=== PATIENT | female | born 1965 | race Caucasian/White ===

== ENCOUNTER 2017-06-06 13:27 | Emergency (ER) | payer BC ==
[2017-06-06 13:57] LABS: #Basophils 0.1 thou/uL (0.0-0.2); #Eosinphils 0.3 thou/uL (0.0-0.7); #Lymphocytes 1.7 thou/uL (1.20-3.40); #Monocytes 0.8 thou/uL (0.11-0.59); %Basophils 0.8 % (0.0-1.0); %Eosinophils 3.5 % (0.0-10.0); %Monocytes 8.6 % (0.0-10.0); Hematocrit 43.7 % (36.0-47.0); Red Blood Cell (RBC) Count 4.49 mill/uL (4.20-5.40); White Blood Cell (WBC) Count 8.8 thou/uL (4.8-10.8)
[2017-06-06 14:26] LABS: ALT (SGPT) 21 U/L (8-55); AST (SGOT) 18 U/L (5-34); Alkaline Phosphatase 159 U/L (40-150); Anion Gap 11 mmol/L (10-20); BUN (Urea Nitrogen) 11 mg/dL (7.0-18.7); Bilirubin, Total 0.3 mg/dL (0.2-1.2); Calc. Creatinine Clearance 0 mL/min (70-130); Calcium 9.1 mg/dL (7.8-10.44); Carbon Dioxide 28 mmol/L (22-29); Chloride 106 mmol/L (98-107); Estimated GFR-MDRD 84; Protein, Total 7.1 g/dL (6.0-8.3)
--- NOTE | 2017-06-06 14:54 | ULT ---
ULTRASOUND RIGHT LOWER EXTREMITY VENOUS DOPPLER: Date: 06/06/17 HISTORY: Calf tenderness x3 days with edema and redness. History of pulmonary embolism. COMPARISON: Venous Doppler from 2007. TECHNIQUE: Real-time Cleveland scale, color Doppler, and spectral analysis of the right lower extremity venous syste m was performed with a linear transducer. FINDINGS: The right common femoral, femoral, proximal portion of greater saphenous, deep femoral vein, as well as popliteal and posterior tibial veins were interrogated. There is mild edema. No deep venous thrombosis. Normal compression, augmentation, and flow. IMPRESSION: No deep venous thrombosis POS: [facility]
== END 2017-06-06 16:42 | disposition home or self-care (01) ==
LOC: ERS 13:27
DX: M79.661 Pain in right lower leg (principal); Z79.899 Other long term (current) drug therapy
CPT/HCPCS: 36415; 80053; 85025; 85379

== ENCOUNTER 2017-11-26 15:57 | Outpatient (CLI) | payer BC | END 2017-11-26 15:58 | disposition home or self-care (01) | LOC: BICMAMMO 15:57 | PROVIDERS: ATTEND Obstetrics & Gynecology | DX: Z12.31 Encounter for screening mammogram for malignant neoplasm of breast (principal) | CPT/HCPCS: 77063; 77067 ==

== ENCOUNTER 2018-11-30 15:50 | Outpatient (CLI) | payer BC ==
--- NOTE | 2018-12-16 14:30 | MMO ---
Bilateral MAMMO Bilat Screen DDI+ABY. CLINICAL HISTORY: Patient is 53 years old and is seen for screening. The patient has no family history of breast cancer. The patient has no personal history of cancer. VIEWS: The views performed were: bilateral craniocaudal with tomosynthesis and bilateral mediolateral oblique with tomosynthesis. FILMS COMPARED: The present examination has been compared to prior imaging studies performed at [facility] on 11/15/2001, 05/18/2002, 07/11/2003, 01/10/2004, 10/18/2004, 11/18/2006, 12/03/2007, 12/04/2008, 12/05/2009, 12/06/2010, 12/08/2011, 12/09/2012, 12/13/2013, 12/14/2014, 11/19/2015, 11/24/2016 and 11/26/2017. MAMMOGRAM FINDINGS: The breasts are heterogeneously dense, which could obscure a lesion on mammography. There are no suspicious masses, suspicious calcifications, or new areas of architectural distortion. IMPRESSION: THERE IS NO MAMMOGRAPHIC EVIDENCE OF MALIGNANCY. A ROUTINE FOLLOW-UP MAMMOGRAM IN 1 YEAR IS RECOMMENDED. THE RESULTS OF THIS EXAM WERE SENT TO THE PATIENT. ACR BI-RADS Category 1 - Negative MAMMOGRAPHY NOTE: 1. A negative mammogram report should not delay a biopsy if a dominant of clinically suspicious mass is present. 2. Approximately 10% to 15% of breast cancers are not detected by mammography. 3. Adenosis and dense breasts may obscure an underlying neoplasm.
== END 2018-11-30 15:51 | disposition home or self-care (01) ==
LOC: BICMAMMO 15:50
PROVIDERS: ATTEND Obstetrics & Gynecology
DX: Z12.31 Encounter for screening mammogram for malignant neoplasm of breast (principal)
CPT/HCPCS: 77063; 77067

== ENCOUNTER 2019-12-29 12:46 | Outpatient (CLI) | payer BC ==
--- NOTE | 2019-12-29 14:05 | MMO ---
Bilateral MAMMO Bilat Screen DDI+ABY. CLINICAL HISTORY: Patient is 54 years old and is seen for screening. The patient has no family history of breast cancer. The patient has no personal history of cancer. VIEWS: The views performed were: bilateral craniocaudal with tomosynthesis and bilateral mediolateral oblique with tomosynthesis. FILMS COMPARED: The present examination has been compared to prior imaging studies performed at [facility] on 11/24/2016, 11/26/2017 and 11/30/2018. This study has been interpreted with the assistance of computer-aided detection. MAMMOGRAM FINDINGS: There are scattered fibroglandular densities. There is a round mass measuring 5 millimeters with circumscribed margins seen in the left breast at 9 o'clock. Increased in size. In the right breast, there are no suspicious masses, calcifications or areas of architectural distortion. IMPRESSION: MASS IN THE LEFT BREAST REQUIRES ADDITIONAL EVALUATION. AN ULTRASOUND EXAM IS RECOMMENDED. ADDITIONAL IMAGING. THE RESULTS OF THIS EXAM WERE SENT TO THE PATIENT. ACR BI-RADS Category 0 - Incomplete: Need additional imaging evaluation. [facility] will notify the patient of the need for additional imaging services. MAMMOGRAPHY NOTE: 1. A negative mammogram report should not delay a biopsy if a dominant of clinically suspicious mass is present. 2. Approximately 10% to 15% of breast cancers are not detected by mammography. 3. Adenosis and dense breasts may obscure an underlying neoplasm. Reported by: MARI JON MD Electonically Signed: [id number]
== END 2019-12-29 12:47 | disposition home or self-care (01) ==
LOC: BICMAMMO 12:46
PROVIDERS: ATTEND Obstetrics & Gynecology
DX: Z12.31 Encounter for screening mammogram for malignant neoplasm of breast (principal); N63.24 Unspecified lump in the left breast, lower inner quadrant
CPT/HCPCS: 77063; 77067

== ENCOUNTER 2019-12-30 12:48 | Outpatient (CLI) | payer BC ==
--- NOTE | 2019-12-30 15:02 | ULT ---
LEFT BREAST ULTRASOUND: Date: 12/30/2019 HISTORY: Evaluate mammographic abnormal finding in the left breast at 9 o'clock on prior mammogram. FINDINGS: The left breast is evaluated in the 9 o'clock position, approximately 3.0 cm from the nipple, demonst rating a 0.4 x 0.5 x 0.5 cm diameter cyst accounting for the mammographic finding. IMPRESSION: BI-RADS Category 2 - Benign findings. Continue annual follow-up screening mammograms. Left breast cyst at 9 o'clock, 3.0 cm from the nipple, accounting for the mammographic finding.
== END 2019-12-30 12:49 | disposition home or self-care (01) ==
LOC: BICULT 12:48
PROVIDERS: ATTEND Obstetrics & Gynecology
DX: N63.20 Unspecified lump in the left breast, unspecified quadrant (principal); N60.02 Solitary cyst of left breast

== ENCOUNTER 2020-10-13 18:40 | Inpatient (IN) | payer BC ==
[2020-10-13] MEDS ORDERED: Ondansetron PF 4 MG/2 ML Vial IVP PRN (21:32)
[2020-10-13] MEDS ORDERED: Senokot S 8.6-50 MG TAB PO PRN (21:32)
--- NOTE | 2020-10-13 21:32 | PDOC.FPRHP ---
- History of Present Illness Chief Complaint: jaundice History of Present Illness: Patient is a 54 yo F with PMH of hypothyroidism, GERD, brain bleed, prior PE who presents as a direct admit for cc of jaundice. She states last Thursday morning she noticed yellowing of her eyes. She also noticed she is fatigued, has bloa ting and indigestion, nausea, chills. Her urine also is bright yellow and her stool has turned to a kishor color. She endorses abdominal pain especially in the RUQ that is worse with eating and states it feels like a "jabbing pain". This RUQ pain and indigestion/bloating has been present "for quite some time but did not think much of it". Denies fever, weight loss, [place], CP, SOB, edema. She denies recent travel, history of IV drug use, recent illness, OTC/supplement use. No family history. No prior history of GI issues or gallbladder problems. Only has seen a GI for her colonoscopy which was normal 2 years ago. ED Course: at outside facility patient had lab work drawn which showed Tbili 10.5 direct bili 9 AST 132 ALT [address] abd pelvis which showed hypochoic lesion in right hepatic lobe measuring about 2.5cm, cholelithiasis without cholecystitis and CBD 5mm - Allergies/Adverse Reactions Allergies Allergy/AdvReac Type Severity Reaction Status Date / Time No Known Allergies Allergy Verified 11/26/19 06:19 - Home Medications Medication Instructions Recorded Confirmed Type Alendronate Sodium 70 mg PO ASDIR 10/13/20 10/13/20 History Levothyroxine Sodium 100 mcg PO DAILY 10/13/20 10/13/20 History [Levothyroxine] Meloxicam [Mobic] 15 mg PO PRN PRN 10/13/20 10/13/20 History tiZANidine HCl [Zanaflex] 4 mg PO Q8HR 10/13/20 10/13/20 History - History PMHx: hypothyroidism, GERD, brain bleed, prior PE (was told the brain bleed and PE were 2/2 to her OCP use after an extensive workup) PSHx: c section x3, hysterectomy with unilateral salpingoopheretomy FHx: denies Social: denies drug use, social alcohol with 1 glass of wine a month and social tobacco use in her 20s for 2 months - Vital signs BP: 127/71 HR: 71 RR: 18 Tmax: 98.4 Pox: 96% on RA Wt: 102kg - Physical Exam Constitutional: NAD, awake, alert and oriented HEENT: normocephalic and atraumatic, PERRLA, EOMI, other (scleral icterus) Neck: supple, FROM Heart: RRR, normal S1/S2, pulses present, no edema Lungs: CTAB, no respiratory distress, no wheezing Abdomen: soft, non-tender, bowel sounds present -Abdomen: negative wiggins's sign Musculoskeletal: normal structure, normal tone Neurological: no focal deficit -Neurological: no asterixis -Skin: jaundiced Heme/Lymphatic: no unusual bruising or bleeding, no purpura, no petechia Psychiatric: normal mood and affect, good judgment and insight, intact recent and remote memory FMR H&P: Results - Labs Result Diagrams: 10/14/20 06:05 10/14/20 06:05 FMR H&P: A/P - Plan Direct Hyperbilirubinemia -concern at this time for mass/malignancy vs autoimmune vs obstruction -patient with painless jaundice and T bili of 10.5, direct bili 9 -elevated AST/ALT/Alk Phos -no fever or WBC -CT showed hypoechoic lesion in right hepatic lobe at 2.5 cm and cholelithiasis without cholecystitis and CBD at 5mm -will order HIDA scan, may potentially need further imaging like hepatic MRI vs MRCP -GI consult in AM -Hepatitis panel, auto immune workup, protime with INR and PTT, further lab workup pending -repeat CMP in AM -NPO pending workup -avoid meds metabolized by liver at this time Hypothyroidism -aware, continue home meds -TSH pending OA -aware, continue home Meloxicam GERD -aware, Tums PRN History of brain bleed -aware History of PE -aware -SCDs for DVT ppx at this time as patient is low risk and is potentially pending procedure in AM Dispo: admit to medical inpatient pending further GI workup DVT ppx: SCDs Diet: NPO pending workup Code: FULL PCP Bacak fluids: LR @140mL/hr Attending: Yoshi FMR H&P: Upper Level - Plan Date/Time: 10/13/202131 Efren Archer DO, have evaluated this patient and agree with findings/plan as outlined by paralegal internship resident. Pertinent changes/additions are listed here. This is a 54 yo female with a pmh of hemorrhagic CVA, obesity, hx of PEs, hypothyroidism who presents to the hospital from an outside ER with a cc of abdominal pain and jaundice. She states the jaundice started about a week ago with associated kishor colored stool and bright yellow urine. She reports some abdominal pain with food but does have a history of GERD. She states she has had her uterus removed along with a single ovary due to excessive bleeding. She also reports her PEs and hemorrhagic stroke were 2/2 to her control at the time. She denies any SOB at this time. She denies any family history of GI issues and denies any history of hemochromatosis. She reports drinking a glass of wine socially 1-2/month and smoked cigarettes briefly in her twenties. She denies recent travel, fever, illness, or unusual foods. She denies IV drug abuse. Objective: Vitals: BP 152/83, HR 72, RR 18, SpO2 98% ra, Wt. 102 kg General: NAD HEENT: mmm, scleral icterus, AT/NC Cardio: RRR, no murmurs Lungs: CTAB Abdomen: BS+, no guarding or rebound, TTP of RUQ with negative wiggins's sign Skin: jaundice Extremities: Pulses 2+ globally, no edema A/P: Hyperbiliruminemia -Admit to medical -CT abdomen/RUQ us show gallstones without evidence of CBD dilation or cholecystitis, there is a 2.5cm liver mass and nonspecific dilation of the hepatic biliary system -Ordering direct bili, with reflex, viral hepatitis panel, coags, iron levels, ceruloplasmin, TSH for further workup. Consider HIDA scan in the AM to assess biliary collecting system -PRN nausea medication Liver mass -Pending labs detailed above for further evaluation Transaminitis -2/2 to obstruction of biliary tract, pending further workup Please see paralegal internship note for further details and management of chronic conditions Code: Full Prophylaxis: none Family: None at bedside Fluids: LR 140 ml/hr Diet: NPO at midnight Disposition: DC in 1-2 days PCP: Dr. Pina Addendum - Attending - Attending Attestation Date/Time: 10/14/20 1015 I personally evaluated the patient and discussed the management with Dr. Alvarenga and Ricky on 10/13. I agree with the History, Examination, Assessment and Plan documented above with any addition or exceptions noted below. Discuss with GI in the morning. Some symptoms c/w symptomatic cholelithiasis and likely obstruction.
[2020-10-13 21:47] VITALS: BMI 34.2
[2020-10-13 22:30] LABS: PTT 26.5 sec (22.9-36.1); Prothrombin Time 13.4 sec (12.0-14.7)
[2020-10-13 23:06] LABS: HBSAg Index 0.13 S/CO (0-0.99); Hep A IgM AB Non-Reactive (NonReactive); Hep A IgM S/CO 0.05 S/CO (0-0.79); Hep B Core Total Ab Non-Reactive (NonReactive); Hep B Core Total Index 0.07 S/CO (0-0.79); Hep B Surf Ag Non-Reactive S/CO (NonReactive); Hep C IgG Ab Non-Reactive (NonReactive); Hep C Index 0.06 S/CO (0-0.79); Thyroid Stimulating Hormone 3.6142 uIU/mL (0.35-4.94)
[2020-10-14] MEDS ORDERED: Meloxicam 15 MG TAB PO PRN (00:07)
[2020-10-14] MEDS ORDERED: Lactated Ringer's 1,000 ML IV SCH ×2 (00:15→00:34)
[2020-10-14] MEDS ORDERED: Calcium Carbonate 500 MG ChewTAB PO PRN (00:29)
[2020-10-14] MEDS: Levothyroxine Sodium 100 MCG TAB PO SCH (05:56)
[2020-10-14 06:17] LABS: #Eosinphils 0.2 thou/uL (0.0-0.7); #Lymphocytes 1.4 thou/uL (1.20-3.40); #Monocytes 0.7 thou/uL (0.11-0.59); #Neutrophils 5.3 thou/uL (1.40-6.50); %Basophils 0.4 % (0.0-1.0); %Eosinophils 3.1 % (0.0-10.0); %Lymphocytes 18.1 % (21.0-51.0); %Monocytes 9.7 % (0.0-10.0); %Neutrophils 68.7 % (42.0-75.0); Hemoglobin 14.4 g/dL (12.0-16.0); Mean Corpuscular HGB CONC 32.5 g/dL (32.0-36.0); Mean Corpuscular Hemoglobin 31.3 pg (27.0-31.0); Mean Corpuscular Volume 96.3 fL (78.0-98.0); Platelet Count 255 thou/uL (130-400); RBC Distribution Width 13.5 % (11.5-14.5); Red Blood Cell (RBC) Count 4.62 mill/uL (4.20-5.40); White Blood Cell (WBC) Count 7.6 thou/uL (4.8-10.8)
[2020-10-14 06:40] LABS: Iron 140 ug/dL (50-170); Transferrin, Serum 224 mg/dL (180-382)
[2020-10-14 06:41] LABS: ALT (SGPT) 192 U/L (8-55); AST (SGOT) 116 U/L (5-34); Albumin 3.5 g/dL (3.5-5.0); Alkaline Phosphatase 301 U/L (40-110); Anion Gap 15 mmol/L (10-20); BUN (Urea Nitrogen) 7 mg/dL (9.8-20.1); Bilirubin, Total 12.7 mg/dL (0.2-1.2); Calc. Creatinine Clearance 156 mL/min (70-130); Calcium 8.4 mg/dL (7.8-10.44); Carbon Dioxide 22 mmol/L (22-29); Chloride 106 mmol/L (98-107); Globulin 2.9 g/dL (2.4-3.5); Glucose 88 mg/dL (70-105); Potassium 3.7 mmol/L (3.5-5.1); Protein, Total 6.4 g/dL (6.0-8.3); Sodium 139 mmol/L (136-145)
--- NOTE | 2020-10-14 07:02 | PDOC.FM ---
- Subjective Subjective: pt resting comfortably in bed. denies abd pain, n/v, cp/sob. no episodes overnight - Objective Vital Signs & Weight: Vital Signs (12 hours) Temp Pulse Resp BP Pulse Ox 10/14/20 05:00 98.2 F 87 18 138/79 98 10/13/20 23:12 98.4 F 71 18 127/71 96 10/13/20 19:47 98.2 F 72 18 152/83 H 98 Weight Weight 102.058 kg I&O: 10/12/20 10/13/20 10/14/20 06:59 06:59 06:59 Intake Total 840 Balance 840 Result Diagrams: 10/14/20 06:05 10/14/20 06:05 Phys Exam - Physical Examination Constitutional: NAD HEENT: moist MMs Neck: full ROM Respiratory: clear to auscultation bilateral Cardiovascular: RRR Gastrointestinal: soft, non-tender, no distention, positive bowel sounds Musculoskeletal: no edema Neurological: moves all 4 limbs Psychiatric: normal affect Skin: no rash Dx/Plan - Plan Plan: Direct Hyperbilirubinemia - mass/malignancy vs autoimmune vs obstruction -will order HIDA scan, may potentially need further imaging like hepatic MRI vs MRCP -GI consult -Hepatitis panel neg, auto immune workup pending , coags wnl -monitor CMP -NPO pending workup -avoid meds metabolized by liver at this time Hypothyroidism -aware, continue home meds -TSH wnl OA -aware, continue home Meloxicam GERD -aware, Tums PRN History of brain bleed -aware History of PE -aware -SCDs for DVT ppx at this time as patient is low risk and is potentially pending procedure Dispo: continue further evaluation, consult GI DVT ppx: SCDs Diet: NPO pending GI input Code: FULL PCP Bacak fluids: LR @140mL/hr Addendum - Attending - Attending Attestation Date/Time: 10/14/20 1026 I personally evaluated the patient and discussed the management with Dr. Rosa. I agree with the History, Examination, Assessment and Plan documented above with any addition or exceptions noted below.
[2020-10-14] MEDS ORDERED: Enoxaparin Sodium 40 MG/0.4 ML SYRINGE SC SCH (09:00)
--- NOTE | 2020-10-14 14:03 | CON ---
DATE OF CONSULTATION: 10/14/2020 HISTORY OF PRESENT ILLNESS: The patient is a 54-year-old female, who noticed that darkening in her eyes were becoming more yellow beginning a week ago. She has some fatigue. She had some nausea and chills. She did not really have significant pain, but has noticed maybe some sharp discomfort in the right side. She said this began when she was told she had gallstones. She has had some indigestion. Her stools have been light colored or kishor-colored. She denies any recent medication use. She does not use any egub-mbj-oqyaglq medicines. No recent new prescription medicines. No travel. No family history of any liver disease. She had a normal colonoscopy 2 years ago. As an outpatient, she underwent an ultrasound and CT scan at [facility] and another ultrasound at [facility]. Those report . According to the family practice notes, there was a liver mass and gallstones. PAST MEDICAL HISTORY: Includes hypothyroidism, gastroesophageal reflux disease, intracranial hemorrhage, pulmonary embolism. PAST SURGICAL HISTORY: Significant for 3 C-sections, hysterectomy. FAMILY HISTORY: Negative for any GI or liver disease. SOCIAL HISTORY: She drinks very rarely. Does not smoke. REVIEW OF SYSTEMS: Noncontributory. PHYSICAL EXAMINATION: GENERAL: Shows a jaundiced, overweight female, in no acute distress. VITAL SIGNS: Temperature 98.1, pulse 72, respiratory rate 18, and blood pressure 133/82. HEENT: Scleral icterus. NECK: Supple. CHEST: Clear. CARDIOVASCULAR: Regular rate and rhythm. ABDOMEN: Soft, nontender. The liver edge is approximately 3 fingerbreadths below the right costal margin, seems to be smooth. RECTAL: Deferred. EXTREMITIES: Normal. NEUROLOGIC: Nonfocal. LABORATORY DATA: Laboratory shows essentially normal CBC. PT is 13.4 with an INR of 1.0. Chemistries significant for a BUN of 7. Total bilirubin 12.7, direct of 9.0, AST of 116, ALT of 192, alkaline phosphatase of 301. Hepatitis A, B and C serology are negative. with the radiologist. The ultrasound showed a common duct of 4.9 mm, gallstones without evidence of gallbladder thickening. A liver mass that is noncharacteristic. CT showed a liver mass in the hilum. There may be some slight increase in intrahepatic bile duct size on the left lobe, but this is very minimal, if present. ASSESSMENT: 1. Jaundice-exact etiology of the patient's jaundice is unclear. This does not look like it is a case of choledocholithiasis, possibly this hepatic mass is appearing with biliary drainage on the left side, but the ductal dilatation on the left lobe of the liver is very mild. No common bile duct dilatation is seen to indicate common duct stone. 2. Cholelithiasis. RECOMMENDATIONS: 1. MRCP tomorrow. 2. AMA, , smooth muscle antibody. 3. Ferritin. 4. Alpha-1 antitrypsin level. 5. Immunoglobulin levels. 6. These results will dictate further management. Job ID: [id number]
[2020-10-14] MEDS ORDERED: Morphine 2 MG/ML VIAL SLOW IVP SCH (15:00)
[2020-10-14] MEDS ORDERED: diphenhydrAMINE 50 MG/ML VIAL ONE (15:52)
[2020-10-14] MEDS ORDERED: diphenhydrAMINE 50 MG/ML VIAL IVP SCH (17:30)
--- NOTE | 2020-10-14 17:49 | NM ---
HEPATOBILIARY SCAN: HISTORY: Jaundice, hyperbilirubinemia, cholelithiasis. RADIOPHARMACEUTICAL: 4.5 mCi Technetium 99m mebrofenin injected intravenously on day 1. 2 mCi Technetium 99m mebrofenin injected intravenously on day 2 (22-hour delay). CCK-8: The patient was pretreated with 2 mcg of CCK-8 intravenously 30 minutes prior to the 1st radiotracer injection. FINDINGS: There is good tracer extraction by the liver. Minimal activity was assumed in the small loops and 2 mg IV morphine was administered with further imaging for 30 minutes. There is no filling of the gall bladder from the Morphine injection. There is tracer activity in the urinary bladder. Different intensities were used to see if there was any activity in the bowel loops. No definite bowel activity is seen. A 21-hour delayed exam was performed which demonstrated no definite activity in the small bowel loops . A second dose of radiotracer was given at 22 hours and imaging was performed for another one hour. N o tracer excretion is seen in the biliary tract or the small bowel loops. No filling of the gallblad edson is seen. IMPRESSION: Findings are highly suspicious for a high-grade biliary obstruction. Discussed over the telephone with Dr. Fredo Cleveland at 1700 hours on 10/14/2020 and 1130 hours on 10/15/2020 . CODE CR POS: [facility]
[2020-10-15] MEDS: Lactated Ringer's 1,000 ML IV SCH ×4 (00:25→23:51)
[2020-10-15] MEDS: Levothyroxine Sodium 100 MCG TAB PO SCH (05:55)
[2020-10-15 07:50] LABS: Iron 111 ug/dL (50-170); Iron Binding Capacity, Total 265 mcg/dL (265-497)
[2020-10-15 07:53] LABS: ALT (SGPT) 163 U/L (8-55); AST (SGOT) 101 U/L (5-34); Albumin 3.3 g/dL (3.5-5.0); Alkaline Phosphatase 264 U/L (40-110); Anion Gap 14 mmol/L (10-20); BUN (Urea Nitrogen) 10 mg/dL (9.8-20.1); Bilirubin, Total 13.2 mg/dL (0.2-1.2); Calc. Creatinine Clearance 164 mL/min (70-130); Calcium 8.3 mg/dL (7.8-10.44); Carbon Dioxide 21 mmol/L (22-29); Chloride 106 mmol/L (98-107); Globulin 2.7 g/dL (2.4-3.5); Glucose 75 mg/dL (70-105); Potassium 3.9 mmol/L (3.5-5.1); Sodium 137 mmol/L (136-145)
[2020-10-15 08:29] LABS: Immunoglob - M (Total IgM) Less than 50.00 mg/dL (33-293)
[2020-10-15] MEDS ORDERED: Magnevist 469MG/ML 20 ML VIAL ONE (10:30)
--- NOTE | 2020-10-15 10:33 | PDOC.FM ---
- Subjective Subjective: Patient feeling okay this morning, just nervous about the results of her imaging and lab studies. HIDA scan showed possible biliary obstruction. Dr. Cleveland planning for MRCP today. Patient denies any chest pain, SOB, abdominal pain, nausea, vomiting, diarrhea, edema. - Objective Vital Signs & Weight: Vital Signs (12 hours) Temp Pulse Resp BP Pulse Ox 10/15/20 07:28 97.6 F 75 18 133/77 97 10/15/20 03:40 98.3 F 73 16 154/77 H 96 10/14/20 23:37 98.0 F 72 16 137/76 95 Weight Weight 102.058 kg I&O: 10/14/20 10/15/20 10/16/20 06:59 06:59 06:59 Intake Total 840 2880 Balance 840 2880 Result Diagrams: 10/14/20 06:05 10/15/20 07:04 Phys Exam - Physical Examination Constitutional: NAD jaundice present, yellow sclera HEENT: moist MMs Neck: supple, full ROM Respiratory: no wheezing, clear to auscultation bilateral Cardiovascular: RRR, no significant murmur Gastrointestinal: soft, non-tender, no distention, positive bowel sounds Musculoskeletal: no edema, pulses present Neurological: normal sensation, moves all 4 limbs Psychiatric: normal affect, A&O x 3 Skin: no rash, normal turgor Deviation from normal: yellow coloring Dx/Plan (1) Direct hyperbilirubinemia Code(s): E80.6 - OTHER DISORDERS OF BILIRUBIN METABOLISM Status: Acute (2) Transaminitis Code(s): R74.01 - ELEVATION OF LEVELS OF LIVER TRANSAMINASE LEVELS Status: Acute (3) GERD (gastroesophageal reflux disease) Code(s): K21.9 - GASTRO-ESOPHAGEAL REFLUX DISEASE WITHOUT ESOPHAGITIS Status: Chronic Qualifiers: Esophagitis presence: without esophagitis Qualified Code(s): K21.9 - Gastro-esophageal reflux disease without esophagitis - Plan Plan: Direct Hyperbilirubinemia - mass/malignancy vs autoimmune vs obstruction - total bili 10.5 -> 13.2, direct bili 9, AST 132, ALT 209, Alk Phos 295 - Abd U/S and CT abd at outside ED facility, showed 2.5 cm hypoechoic lesion of right hepatic lobe, 4.9 mm common duct, cholelithiasis - HIDA scan: possible biliary obstruction - GI consult--Dr. Cleveland, appreciate recs -lab studies ordered and pending -plan for MRCP later today - Hepatitis panel neg, auto immune workup pending , coags wnl -so far AFP, CEA, Immunogloblins are wnl - monitor CMP - NPO pending workup - avoid meds metabolized by liver at this time Hypothyroidism - aware, continue home meds - TSH wnl OA - aware, continue home Meloxicam GERD - aware, Tums PRN History of brain bleed - aware History of PE - aware - SCDs for DVT ppx at this time as patient is low risk and is potentially pending procedure DVT ppx: SCDs Diet: NPO pending GI input Code: FULL PCP: Yovani fluids: LR @140mL/hr Dispo: Stable, admitted to inpatient on medical unit. GI consulted with plan for MRCP later today. Lab studies pending to further guide management. Addendum - Attending - Attending Attestation Date/Time: 10/15/20 6635 I personally evaluated the patient and discussed the management with Dr. Garza. I agree with the History, Examination, Assessment and Plan documented above with any addition or exceptions noted below.
--- NOTE | 2020-10-15 11:52 | NM ---
HEPATOBILIARY SCAN: HISTORY: Jaundice, hyperbilirubinemia, cholelithiasis. RADIOPHARMACEUTICAL: 4.5 mCi Technetium 99m mebrofenin injected intravenously on day 1. 2 mCi Technetium 99m mebrofenin injected intravenously on day 2 (22-hour delay). CCK-8: The patient was pretreated with 2 mcg of CCK-8 intravenously 30 minutes prior to the 1st radiotracer injection. FINDINGS: There is good tracer extraction by the liver. Minimal activity was assumed in the small loops and 2 mg IV morphine was administered with further imaging for 30 minutes. There is no filling of the gall bladder from the Morphine injection. There is tracer activity in the urinary bladder. Different intensities were used to see if there was any activity in the bowel loops. No definite bowel activity is seen. A 21-hour delayed exam was performed which demonstrated no definite activity in the small bowel loops . A second dose of radiotracer was given at 22 hours and imaging was performed for another one hour. N o tracer excretion is seen in the biliary tract of the small bowel loops. No filling of the gallblad edson is seen. IMPRESSION: Findings are highly suspicious for a high-grade biliary obstruction. Discussed over the telephone with Dr. Fredo Cleveland at 1700 hours on 10/14/2020 and 1130 hours on 10/15/2020 . CODE CR POS: OFF
--- NOTE | 2020-10-15 15:03 | MRI ---
MRI Abdomen W WO Con History: Abnormal findings on recent imaging Comparison: HIDA scan same day. Ultrasound gallbladder October 12, 2020. Findings: Multiplanar multisequence MRI of the abdomen was performed prior to and after the intraveno us administration of contrast. No significant pleural or pericardial effusion. Trace left basilar atelectasis. T2 moderately hyperintense mass within hepatic Alyx measuring up to 1.9 cm in size with delayed intern retail al enhancement. Moderate intrahepatic biliary dilatation to the level of the biliary confluence which is ill-defined mass only seen on delayed phase of contrast at the confluence of the main right and left biliary ducts with invasion into the adjacent liver. The distal common bile duct. Pancreas is normal. No choledocholithiasis. Cholelithiasis is present. Mild gallbladder thickening without pericholecystic inflammation. No hydronephrosis. The adrenal glands are normal. No abnormal renal enhancing mass. Aortic contour is normal. Mouna hepatis lymph nodes has a low-grade internal enhancement measuring 12 mm in short axis Background bone marrow signal is maintained. The pancreas is normal. No pancreatic ductal dilatation. Impression: 1. Findings highly suggestive of a [place] cholangiocarcinoma at the confluence of the right main an d left bile ducts with invasion into the adjacent liver with the mass in total measuring up to 3.3 cm in size. Abnormal adjacent mouna hepatis lymph nodes. 2. 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 3. Cholelithiasis without cholecystitis. 4. No choledocholithiasis.
--- NOTE | 2020-10-15 17:12 | PRG ---
DATE OF SERVICE: 10/15/2020 SUBJECTIVE: Ms. De La Garza is just feeling tired from all of the testing she has undergone today. No significant abdominal pain. Jaundice persists. She has otherwise been stable. OBJECTIVE: VITAL SIGNS: Temperature 98.2, pulse 76, blood pressure 146/84, and 98% oxygen saturation on room air. GENERAL: Jaundiced, in no acute distress, she is tearful during our conversation, however. HEART: Regular rate and rhythm. LUNGS: Clear to auscultation bilaterally. ABDOMEN: Soft. Nontender to palpation. EXTREMITIES: No peripheral edema. LABORATORY STUDIES: WBC 7.6, hemoglobin 14.4, platelets 255. INR 1.0. Sodium 137, potassium 3.9, BUN 10, creatinine 0.64, total bilirubin 13.2, alkaline phosphatase 264, AST 101, ALT 163, albumin 3.3. CEA is only 2.64. AFP is only 3.6. Total IgG is normal at 798. Viral hepatitis serologies are all negative. IMAGING STUDIES: HIDA scan demonstrates findings suspicious for high-grade biliary obstruction. There is good tracer uptake by the liver, but no filling of the gallbladder, biliary tract, or small bowel loops. MRCP was also performed today and this demonstrates findings highly suggestive of a [place] cholangiocarcinoma at the confluence of right main and left bile ducts with invasion into the adjacent liver. The mass measures 3.3 cm in size. There are abnormal adjacent katharine hepatis lymph nodes. There is cholelithiasis but no cholecystitis. No choledocholithiasis. ASSESSMENT AND PLAN: 1. [place] tumor, highly concerning for cholangiocarcinoma. 2. Jaundice, fairly acute over the past 1 to 2 weeks. I had to share the bad news about the concerning imaging findings with the patient and her today. Findings are highly concerning for a [place] cholangiocarcinoma causing biliary obstruction at the bifurcation of the right and left hepatic ducts. CA-19-9 level is still pending. The patient is going to need tissue diagnosis. This would best be performed by endoscopic ultrasound. The patient will also likely need ERCP for attempted stent placement into the right and left hepatic ducts. I would recommend transfer to a tertiary center for this purpose. Recommend we try to initiate a transfer to [facility] in [place]. Please call anytime with questions or concerns. Job ID: [id number]
[2020-10-16 03:42] VITALS: BP 136/81; TEMP 98.3
--- NOTE | 2020-10-17 10:17 | DIS ---
DATE OF ADMISSION: 10/13/2020 DATE OF DISCHARGE: 10/16/2020 (The patient transferred to [facility] in [place], [place]). RESIDENT: Clara Garza DO. ADMITTING ATTENDING: Chris Belle MD DISCHARGE ATTENDING: Be Desouza MD CONSULTS: GI, Dr. Fredo Cleveland and Dr. Kip Potts. PROCEDURES: 1. HIDA scan on October 14, 2020: Findings are highly suspicious for high-grade biliary obstruction. 2. HIDA scan on October 15, 2020. Delayed study shows findings highly suspicious for high-grade biliary obstruction. 3. MRCP on October 15, 2020, findings highly suggestive of a [place] cholangiocarcinoma at the confluence of the right main and left bile ducts with invasion into the adjacent liver with the mass in total measuring up to 3.3 cm in size. Abnormal adjacent katharine hepatis lymph nodes. 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 Cholelithiasis without cholecystitis. No choledocholithiasis. PRIMARY DIAGNOSIS: Direct hyperbilirubinemia, likely secondary to suspected cholangiocarcinoma. SECONDARY DIAGNOSES: 1. Hypothyroidism. 2. Cholelithiasis. 3. Osteoarthritis. 4. Gastroesophageal reflux disease. 5. History of pulmonary embolism. DISCHARGE MEDICATIONS: 1. Meloxicam 15 mg p.o. p.r.n. 2. Tizanidine 4 mg p.o. q.8 hours p.r.n. 3. Levothyroxine 100 mcg p.o. daily. 4. Alendronate sodium 70 mg p.o. as directed. DISCONTINUED MEDICATIONS: None. HISTORY OF PRESENT ILLNESS/HOSPITAL COURSE: The patient is a 54-year-old female with a past medical history of hypothyroidism, GERD, and prior pulmonary embolism, who presented as a direct admission from an outside emergency department with chief complaint of jaundice. She stated that approximately a week ago, she noticed yellowing of her eyes. She has had progressive fatigue, bloating, indigestion, nausea, and chills. She also noticed her stool has turned to a kishor color. She endorsed abdominal pain especially in the right upper quadrant that is worse with eating and feels like a "jabbing pain." The right upper quadrant pain and indigestion have been present for quite some time, but she did not think much of it. She noticed that her skin continued to turn yellow throughout the week and so she went to the outside emergency department for evaluation. The patient did have a colonoscopy, which was normal two years ago. At the outside emergency department facility, the patient had lab work drawn, which showed a total bilirubin of 10.5, direct bilirubin of 9, AST 132, ALT 209, alkaline phosphatase 295. CT of the abdomen and pelvis at that facility showed a hypoechoic lesion in the right hepatic lobe measuring about 2.5 cm, cholelithiasis without cholecystitis, and a common bile duct dilated at 5 mm. The patient was admitted to inpatient on the medical floor for direct hyperbilirubinemia. GI, Dr. Cleveland and Dr. Potts were consulted. An extensive laboratory workup was ordered to further evaluate possible causes of the patient's elevated bilirubin. HIDA scan was completed, which showed findings suggestive of a biliary obstruction. Later, MRCP/abdominal MRI was completed on October 15, which showed findings suggestive of a [place] cholangiocarcinoma at the confluence of the left and right bile ducts into the common duct. The patient also had a separate mass on the liver, which was suggestive of a nodular cholangiocarcinoma. Dr. Potts relayed these findings to the patient. There was a need for tissue diagnosis with endoscopic ultrasound and an additional need for ERCP with attempted stent placement into the right and left hepatic ducts. Dr. Potts recommended transfer to a tertiary center for this purpose. Transfer was initiated to [facility] in [place], [place]. 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 LABORATORY RESULTS: 1. CBC on October 14, 2020: WBC 7.6, hemoglobin 14.4, hematocrit 44.5, and platelets 255. 2. Coag panel on October 13, 2020: PT 13.4, INR 1.0, and APTT 26.5. 3. Chemistry studies on October 14, 2020: Sodium 139, potassium 3.7, chloride 106, carbon dioxide 22, BUN 7, creatinine 0.67, glucose 88, calcium 8.4, total bilirubin 12.7, direct bilirubin 9.0, AST 116, ALT 192, alkaline phosphatase 301. TSH 3.61, iron 140, TIBC 265, transferrin 224, ferritin 226, ceruloplasmin 34. Tumor marker; AFP 3.6, CEA antigen 2.64, copper 160. 4. Immunoglobulin testing within normal limits, smooth muscle antibody titer pending. 5. Hepatitis panel negative. DISPOSITION: Stable. DISCHARGE INSTRUCTIONS: 1. Location: Transfer to [facility] in [place], [place]. 2. Diet: Regular. 3. Activity: As tolerated. 4. Follow up pending further studies at [facility] in [place], [place]. Job ID: [id number]
[2020-10-18 14:40] LABS: Smooth Muscle Total ABS 6 Units (0-19)
[2020-10-19 12:45] LABS: ANA Symphony (Qualitative) Negative (Negative); ANA Symphony (Quantitative) 0.1 Ratio (< 0.7 Negative); EliA Vaculitis New Method **** NEW METHOD ****; Mitochondrial Ab 1.3 U/mL (<4 Negative); dsDNA IgG Antibody 3.5 IU/mL (<10 Negative)
[2020-10-21 12:08] LABS: A1 Antitrypsin Phenotype Inter MZ (.); Alpha-1-Antitrypsin 119 mg/dL (101-187)
== END 2020-10-16 04:15 | disposition short-term general hospital (02) | DRG 436 ==
LOC: SURG A 19:51 → OBSVTOIN 21:32
PROVIDERS: ADMIT Emergency Medicine; ATTEND Family Medicine
DX: C22.1 Intrahepatic bile duct carcinoma (principal); K80.51 Calculus of bile duct without cholangitis or cholecystitis with obstruction; E03.9 Hypothyroidism, unspecified; M19.90 Unspecified osteoarthritis, unspecified site; K21.9 Gastro-esophageal reflux disease without esophagitis; Z20.822 Contact with and (suspected) exposure to COVID-19; Z86.711 Personal history of pulmonary embolism; Z79.899 Other long term (current) drug therapy; Z90.710 Acquired absence of both cervix and uterus; Z90.721 Acquired absence of ovaries, unilateral; Z86.73 Personal history of transient ischemic attack (TIA), and cerebral infarction without residual deficits
CPT/HCPCS: 36415; 74183; 78226; 78227; 80053; 82103; 82104; 82105; 82248; 82378; 82390; 82525; 82728; 83516; 83540; 83550; 84443; 84466; 85025; 85610; 85730; 86038; 86225; 86301; 86704; 86709; 86803; 87340; A9537; A9579; J1200; J2270

== ENCOUNTER 2020-11-09 09:32 | Outpatient (CLI) | payer BC ==
[2020-11-09 21:53] LABS: SARS-CoV-2 PCR by NAA Not Detected (NotDetected)
== END 2020-11-09 09:33 | disposition home or self-care (01) ==
LOC: LABBT 09:32
PROVIDERS: ATTEND Surgery
DX: Z01.812 Encounter for preprocedural laboratory examination (principal); C22.1 Intrahepatic bile duct carcinoma; Z20.822 Contact with and (suspected) exposure to COVID-19
CPT/HCPCS: 87635; U0003; U0005

== ENCOUNTER 2020-11-13 09:08 | Day surgery (SDC) | payer BC ==
[2020-11-12 10:48] VITALS: BMI 31.4
[2020-11-13] MEDS ORDERED: Bupivacaine 0.25% HCL 30 ML VIAL ONE (10:05)
[2020-11-13] MEDS ORDERED: Lidocaine 1% w/Epinephrine 1:100K 20 ML VIAL ONE (10:05)
[2020-11-13] MEDS ORDERED: Midazolam HCl 2 mg/2 ml Vial ONE (10:10)
[2020-11-13] MEDS ORDERED: Propofol 500 MG/50 ML VIAL ONE (10:10)
[2020-11-13] MEDS ORDERED: Fentanyl 100 MCG/2 ML VIAL ONE (10:10)
== END 2020-11-13 12:00 | disposition home or self-care (01) ==
LOC: SDC 09:08
PROVIDERS: ATTEND Surgery
PROC: 02HV33Z Insertion of Infusion Device into Superior Vena Cava, Percutaneous Approach (ICD-10-PCS; principal; 2020-11-13)
DX: C22.1 Intrahepatic bile duct carcinoma (principal); J30.2 Other seasonal allergic rhinitis; E07.9 Disorder of thyroid, unspecified; Z79.83 Long term (current) use of bisphosphonates; Z79.899 Other long term (current) drug therapy; Z86.73 Personal history of transient ischemic attack (TIA), and cerebral infarction without residual deficits; Z88.5 Allergy status to narcotic agent
CPT/HCPCS: 71045; C1788; J0690; J1642; J2250; J2704; J3010; S0020

== ENCOUNTER 2021-01-01 15:43 | Outpatient (CLI) | payer BC | END 2021-01-01 15:44 | disposition home or self-care (01) | LOC: BICMAMMO 15:43 | PROVIDERS: ATTEND Obstetrics & Gynecology | DX: Z12.31 Encounter for screening mammogram for malignant neoplasm of breast (principal); Z85.89 Personal history of malignant neoplasm of other organs and systems | CPT/HCPCS: 77063; 77067 ==

== ENCOUNTER 2021-01-25 08:50 | Day surgery (SDC) | payer BC ==
[2021-01-25] MEDS ORDERED: diphenhydrAMINE 25 MG CAP PO PRN (09:00)
[2021-01-25] MEDS ORDERED: Acetaminophen 500 MG TAB PO PRN (09:00)
[2021-01-25] MEDS ORDERED: Sodium Chloride 0.9% 20 ML ONE (09:22)
[2021-01-25 12:00] VITALS: BP 126/60; TEMP 98
== END 2021-01-25 12:00 | disposition home or self-care (01) ==
LOC: ONC/OP 08:50
PROVIDERS: ATTEND Internal Medicine Hematology & Oncology
PROC: 30233N1 Transfusion of Nonautologous Red Blood Cells into Peripheral Vein, Percutaneous Approach (ICD-10-PCS; principal; 2021-01-25)
DX: D64.9 Anemia, unspecified (principal); D69.6 Thrombocytopenia, unspecified; Z88.5 Allergy status to narcotic agent
CPT/HCPCS: 36430; 86850; 86900; 86901; J1642; P9016; Q0163

== ENCOUNTER 2021-03-29 16:26 | Day surgery (SDC) | payer BC ==
[2021-03-29] MEDS ORDERED: Acetaminophen 500 MG TAB PO SCH (18:00)
[2021-03-29] MEDS ORDERED: diphenhydrAMINE 25 MG CAP PO SCH (18:00)
[2021-03-30 01:57] VITALS: BP 136/76; TEMP 99
[2021-03-30 02:53] LABS: Band 8 % (5-11); Eosinophils 2 % (0-10); Hypochromia SLIGHT = 6-15 cells (100X) (0-5/hpf); Lymphocytes 56 % (21-51); MDiff Complete? YES; Mean Corpuscular HGB CONC 34.8 g/dL (32.0-36.0); Mean Corpuscular Hemoglobin 31.1 pg (27.0-31.0); Mean Corpuscular Volume 89.5 fL (78.0-98.0); Mean Platelet Volume 8.9 fL (7.4-10.4); Monocytes 8 % (0-10); Neutrophil 26 % (42-75); Platelet Count 46 thou/uL (130-400); Platelet Morphology Comment Appears Decreased; RBC Distribution Width 13.9 % (11.5-14.5); Reflex for Review?? YES; White Blood Cell (WBC) Count 1.4 thou/uL (4.8-10.8)
== END 2021-03-30 07:28 | disposition home or self-care (01) ==
LOC: ONC 16:26 → ONC/OP 16:26
PROVIDERS: ATTEND Internal Medicine Hematology & Oncology
PROC: 30233N1 Transfusion of Nonautologous Red Blood Cells into Peripheral Vein, Percutaneous Approach (ICD-10-PCS; principal; 2021-03-30)
DX: D64.9 Anemia, unspecified (principal); D69.6 Thrombocytopenia, unspecified
CPT/HCPCS: 36430; 85025; 85060; 86850; 86900; 86901; J1642; P9016; P9035; Q0163

== ENCOUNTER 2021-04-19 19:29 | Day surgery (SDC) | payer BC ==
[2021-04-19] MEDS ORDERED: Acetaminophen 500 MG TAB PO SCH (20:15)
[2021-04-19] MEDS ORDERED: diphenhydrAMINE 25 MG CAP PO SCH (20:15)
[2021-04-20 02:59] VITALS: BP 116/68; TEMP 98.1
[2021-04-20 05:02] LABS: Band 21 % (5-11); Lymphocytes 49 % (21-51); MDiff Complete? YES; Mean Corpuscular Hemoglobin 31.3 pg (27.0-31.0); Mean Corpuscular Volume 86.9 fL (78.0-98.0); Mean Platelet Volume 8.3 fL (7.4-10.4); Monocytes 6 % (0-10); Neutrophil 23 % (42-75); Nucleated RBC 1 % (0); Platelet Count 55 thou/uL (130-400); Platelet Morphology Comment Appears Decreased; RBC Distribution Width 14.5 % (11.5-14.5); Red Blood Cell (RBC) Count 2.87 mill/uL (4.20-5.40); White Blood Cell (WBC) Count 4.4 thou/uL (4.8-10.8)
== END 2021-04-20 06:39 | disposition home or self-care (01) ==
LOC: ER/OP 19:29 → EDSTATUS 19:48 → ONC/OP 19:53 → ONC 20:20 → ONC/OP 04-20 06:39
PROVIDERS: ATTEND Internal Medicine Hematology & Oncology
PROC: 30233N1 Transfusion of Nonautologous Red Blood Cells into Peripheral Vein, Percutaneous Approach (ICD-10-PCS; principal; 2021-04-20)
DX: D64.9 Anemia, unspecified (principal); D69.6 Thrombocytopenia, unspecified; Z88.5 Allergy status to narcotic agent; C22.1 Intrahepatic bile duct carcinoma
CPT/HCPCS: 36430; 82247; 85007; 85027; 86850; 86900; 86901; J1642; P9016

== ENCOUNTER 2021-05-17 11:52 | Day surgery (SDC) | payer BC ==
[2021-05-17] MEDS ORDERED: Acetaminophen 500 MG TAB PO PRN (12:06)
[2021-05-17] MEDS ORDERED: diphenhydrAMINE 25 MG CAP PO PRN (12:06)
[2021-05-17] MEDS ORDERED: Sodium Chloride 0.9% 20 ML ONE (12:27)
[2021-05-17 15:57] VITALS: BP 132/72; TEMP 97.9
== END 2021-05-17 15:58 | disposition home or self-care (01) ==
LOC: ONC/OP 11:52
PROVIDERS: ATTEND Internal Medicine Hematology & Oncology
PROC: 30233N1 Transfusion of Nonautologous Red Blood Cells into Peripheral Vein, Percutaneous Approach (ICD-10-PCS; principal; 2021-05-17)
DX: D64.9 Anemia, unspecified (principal); D69.6 Thrombocytopenia, unspecified; Z88.5 Allergy status to narcotic agent
CPT/HCPCS: 36430; 86850; 86900; 86901; J1642; P9016; Q0163